=== PATIENT | female | born 1980 | race Two or more races ===

== ENCOUNTER 2020-08-22 09:49 | Observation (INO) | payer BC ==
[~2020-08-22] VITALS: Ht 172.7 cm; Wt 81.6 kg
[2020-08-22] MEDS ORDERED: RHO(D) IMMUNE GLOBULIN 300 MCG/SYR IM ONE (10:45)
[2020-08-22] MEDS ORDERED: PREN1TAB78 MT (10:49)
[2020-08-22] MEDS ORDERED: FERR325T6 MT (10:49)
[2020-08-22] MEDS ORDERED: LEVO50TA8 MT (10:49)
[2020-08-22] MEDS ORDERED: MISOPROSTOL 200MCG TABLET PO NR (11:00)
[2020-08-22 11:15] LABS: CLARITY URINE CLEAR (CLEAR); COLOR URINE ORANGE (YELLOW); KETONES URINE NEGATIVE (NEGATIVE); LEUKOCYTE ESTERASE URINE TRACE (NEGATIVE); NITRITE URINE NEGATIVE (NEGATIVE); OCCULT BLOOD URINE 3+ (NEGATIVE); PH URINE 7.5 (4.5-8.0); PROTEIN URINE TRACE (NEGATIVE); SPECIFIC GRAVITY URINE 1.006 (1.005-1.030); UROBILINOGEN URINE 0.2 E.U./dL (0.2-1.0)
[2020-08-22 11:42] LABS: BASOPHILS % 0.2 % (0.0-2.0); EOSINOPHILS % 1.6 % (0.0-5.0); HEMATOCRIT. 35.2 % (36.0-48.0); HEMOGLOBIN. 11.7 g/dL (12.0-16.0); LYMPHOCYTES % 17.3 % (20.0-50.0); MEAN CORPUSCULAR HEMOGLOBIN 25.6 pg (28.0-32.0); MEAN PLATELET VOLUME 7.8 fl (7.4-10.4); MONOCYTES % 4.6 % (2.0-8.0); NEUTROPHILS % 76.3 % (40.0-76.0); PLATELET 257 x1000/uL (130-400); RED BLOOD CELL COUNT 4.58 mill/uL (4.2-5.4); RED CELL DISTRIBUTION WIDTH 20.6 % (11.6-14.6)
[2020-08-22] MEDS ORDERED: LACTATED RINGERS 1,000 ML IV SCH (11:45)
[2020-08-22 11:59] LABS: INR 0.9; PARTIAL THROMBOPLASTIN TIME 32.5 sec (23.4-31.0)
[2020-08-22 12:05] LABS: *AMPHETAMINES SCREEN URINE NEGATIVE (NEGATIVE); *BARBITURATES SCREEN URINE NEGATIVE (NEGATIVE); *BENZODIAZEPINES SCREEN URINE NEGATIVE (NEGATIVE)
[2020-08-22 12:06] LABS: *COCAINE SCREEN URINE NEGATIVE (NEGATIVE); CANNABINOID URINE SCREEN NEGATIVE (NEGATIVE); METHADONE URINE SCREEN NEGATIVE (NEGATIVE); OPIATES URINE SCREEN NEGATIVE (NEGATIVE); PHENCYCLIDINE URINE SCREEN NEGATIVE (NEGATIVE)
[2020-08-22 12:36] LABS: HEPATITIS B SURFACE ANTIGEN NEGATIVE
[2020-08-22] MEDS ORDERED: MEPERIDINE HCL/PF 25MG/ML CPJ IV PRN ×2 (13:30)
[2020-08-22] MEDS ORDERED: ONDANSETRON HCL 4MG/2ML INJ IV PRN (13:30)
[2020-08-22] MEDS ORDERED: MORPHINE SULFATE 2 MG/ML CPJ (NOT FOR IM USE) IV PRN (13:30)
[2020-08-22] MEDS ORDERED: HYDROMORPHONE HCL/PF 2MG/ML CPJ IV PRN (13:30)
[2020-08-22] MEDS ORDERED: METOCLOPRAMIDE HCL 10MG/2ML VIAL ONE (13:42)
[2020-08-22] MEDS ORDERED: FENTANYL CITRATE/PF 50MCG/ML 2ML VIAL ONE (13:42)
[2020-08-22] MEDS ORDERED: ONDANSETRON HCL 4MG/2ML INJ ONE (13:42)
[2020-08-22] MEDS ORDERED: GLYCOPYRROLATE 0.2 MG/ML 2ML VIAL ONE (13:42)
[2020-08-22] MEDS ORDERED: SUCCINYLCHOLINE CHLORIDE 200MG/10ML IV ONE (13:42)
[2020-08-22] MEDS ORDERED: PROPOFOL 200MG/20ML VIAL IV ONE (13:42)
[2020-08-22] MEDS ORDERED: MIDAZOLAM HCL 2 MG/2 ML VIAL ONE (13:42)
[2020-08-22] MEDS ORDERED: OXYTOCIN 10 UNITS/ML 1ML ONE (13:54)
[2020-08-22] MEDS ORDERED: SODIUM CHLORIDE 0.9% 1,000 ML IV ONE (14:00)
[2020-08-22] MEDS ORDERED: METH PO (15:28)
[2020-08-22] MEDS ORDERED: IBUP-2030 MT (15:28)
[2020-08-22] MEDS ORDERED: DOXY100C2 MT (15:28)
== END 2020-08-22 16:20 | disposition home or self-care (01) ==
LOC: 8 EST LDRP 09:49
PROVIDERS: ADMIT Obstetrics & Gynecology; ATTEND Obstetrics & Gynecology
DX: O36.4XX0 Maternal care for intrauterine death, not applicable or unspecified (principal); Z20.828 Contact with and (suspected) exposure to other viral communicable diseases; O20.9 Hemorrhage in early pregnancy, unspecified; Z3A.17 17 weeks gestation of pregnancy; Z79.899 Other long term (current) drug therapy
CPT/HCPCS: 36415; 59820; 80305; 81003; 85025; 85610; 85730; 86592; 86703; 86762; 86850; 86900; 86901; 86920; 87340; 87426; 88305; 96360; 96361; G0378; J2250; J2405; J2704; J2765; J3010; 99281; J0330; J3490; J7120